=== PATIENT | male | born 1980 | race American Indian/Alaskan Native ===

== ENCOUNTER 2018-05-23 08:09 | Emergency (ER) | payer BC, OTHER ==
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
[2018-05-23 08:24] VITALS: BP 92/55
[2018-05-23 08:59] LABS: ANION GAP 10.2; CHLORIDE,CL 111 mmol/L (101-111); SODIUM,NA 143 mmol/L (135-145)
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
[2018-05-23] MEDS ORDERED: Acetaminophen 325 MG Tab PO ONE (10:01)
== END 2018-05-23 10:20 | disposition home or self-care (01) ==
LOC: DL.ED 08:09
DX: S52.501A Unspecified fracture of the lower end of right radius, initial encounter for closed fracture (principal); S52.514A Nondisplaced fracture of right radial styloid process, initial encounter for closed fracture; Z91.030 Bee allergy status; R78.0 Finding of alcohol in blood; Y90.7 Blood alcohol level of 200-239 mg/100 ml; W19.XXXA Unspecified fall, initial encounter
CPT/HCPCS: 29125; 36415; 73110; 80053; 80305; 81001; 85025; 99284; A9270; G0480

== ENCOUNTER 2023-07-16 03:30 | Emergency (ER) | payer MEDICAID, OTHER ==
[2023-07-16] MEDS ORDERED: Sodium Chloride 0.9% 10 ML Syringe FLUSH PRN (03:40)
[2023-07-16] MEDS ORDERED: Iopamidol 612 MG/ML 100 ML Bottle IVPUSH ONE (03:40)
[2023-07-16 05:39] VITALS: BP 102/76; PULSE 75
== END 2023-07-16 05:45 | disposition home or self-care (01) ==
LOC: DL.ED 03:30
DX: T18.108A Unspecified foreign body in esophagus causing other injury, initial encounter (principal); Z91.030 Bee allergy status; X58.XXXA Exposure to other specified factors, initial encounter
CPT/HCPCS: 70491; 99282; 99283; J3490; Q9967

== ENCOUNTER 2024-07-30 16:07 | Emergency (ER) | payer SELFPAY ==
[2024-07-30] MEDS: Acetaminophen 325 MG Tab PO ONE (16:31)
[2024-07-30 18:59] VITALS: BP 105/60; PULSE 54
== END 2024-07-30 19:01 | disposition home or self-care (01) ==
LOC: DL.ED 16:07
DX: R07.81 Pleurodynia (principal); F17.200 Nicotine dependence, unspecified, uncomplicated; Z91.030 Bee allergy status
CPT/HCPCS: 71101; 99283; A9270